=== PATIENT | male | born 1965 | race Caucasian/White ===

== ENCOUNTER 2019-07-06 06:18 | Emergency (ER) | payer SELFPAY ==
[~2019-07-06] VITALS: Ht 175.3 cm; Wt 82.3 kg
[2019-07-06 08:09] LABS: UA SPECIFIC GRAVITY <=1.005 (1.005-1.035); microscopic required? YES; urine erythrocyte TRACE (NEGATIVE)
[2019-07-06 08:12] LABS: BASOPHIL % 0.2 % (0-2)
[2019-07-06 08:16] LABS: PLATELET COUNT 129 x10^3mcL (130-400)
[2019-07-06 08:19] LABS: CALCIUM 8.5 mg/dL (8.5-10.1); CARBON DIOXIDE 31.1 mmol/L (21-32); CHLORIDE SERUM 104 mmol/L (98-107); CREATININE SERUM 1.2 mg/dL (0.7-1.3); GFR1 > 60 mL/min; GLUCOSE SERUM 96 mg/dL (74-106); SODIUM SERUM 141 mmol/L (136-145)
[2019-07-06 08:23] LABS: ALBUMIN 3.7 g/dL (3.4-5.0); ALKALINE PHOSPHATASE 79 U/L (46-116); ALT/SGPT 17 U/L (16-63); AST/SGOT 13 U/L (15-37); BILIRUBIN TOTAL 0.5 mg/dL (0.20-1.00); LIPASE 228 IU/L (73-393); TOTAL PROTEIN, SERUM 7.5 g/dL (6.4-8.2)
[2019-07-06 11:12] VITALS: BP 134/82
== END 2019-07-06 11:54 | disposition home or self-care (01) ==
LOC: ED 06:18
PROVIDERS: Emergency Medicine
DX: K52.9 Noninfective gastroenteritis and colitis, unspecified (principal)
CPT/HCPCS: 87046; 87046-59; J1885; J2405; J7030